=== PATIENT | male | born 1990 | race Caucasian/White ===

== ENCOUNTER 2020-11-29 17:16 | Emergency (ER) | payer OTHER ==
[~2020-11-29 17:16] MED LIST: ASPIRIN 325MG325 MG PO; BACTROBAN OINT22 GM EXT; CLEOCIN HCL300 MG PO; IBU800 MG PO; IBUPROFEN600 MG PO; IBUPROFEN800 MG PO; KEFLEX CAP 500500 MG PO; NORCO 7.5-3251 EACH PO; PERCOCET 7.5-31 EACH PO; PRILOSEC OTC20 MG PO; VITAMIN C500 M4 PO
[2020-11-29] MEDS ORDERED: BACTROBAN OINT22 GM EXT (20:09)
[2020-11-29] MEDS ORDERED: IBUPROFEN600 MG PO (20:09)
[2020-11-29] MEDS ORDERED: BACTRIM DS TAB1 EACH PO (20:09)
== END 2020-11-29 20:20 | disposition home or self-care (01) ==
LOC: ER1 17:16
DX: L02.31 Cutaneous abscess of buttock (principal); K21.9 Gastro-esophageal reflux disease without esophagitis; F17.210 Nicotine dependence, cigarettes, uncomplicated; Z88.1 Allergy status to other antibiotic agents
CPT/HCPCS: 87070; 87205; 99283

== ENCOUNTER → 2021-04-17 | Outpatient (CLI) | payer OTHER ==
[~2021-04-17] MED LIST changes: +BACTRIM DS TAB1 EACH PO
== END ==
LOC: KOH-I 15:26
DX: M25.572 Pain in left ankle and joints of left foot (principal); M19.072 Primary osteoarthritis, left ankle and foot
CPT/HCPCS: 73610

== ENCOUNTER → 2021-04-18 | Outpatient (CLI) | payer OTHER | LOC: KOH-I 13:00 | DX: M19.072 Primary osteoarthritis, left ankle and foot (principal); M87.872 Other osteonecrosis, left ankle; M95.8 Other specified acquired deformities of musculoskeletal system | CPT/HCPCS: 73721 ==

== ENCOUNTER 2021-09-05 15:32 | Emergency (ER) | payer OTHER ==
[2021-09-05 18:19] LABS: HEMOGLOBIN 14.9 gm/dl (14.0-17.5); RED BLOOD COUNT 5.01 M/UL (4.20-5.50); WHITE BLOOD COUNT 10.6 K/UL (4.5-11.0)
[2021-09-05 18:46] LABS: BUN/CREATININE RATIO 18 (0-10)
[2021-09-05] MEDS ORDERED: ELIQUIS 5 MG TAB5 MG PO (19:37)
== END 2021-09-05 20:24 | disposition home or self-care (01) ==
LOC: ER1 15:32
PROVIDERS: Physician Assistant Medical
DX: I82.4Z1 Acute embolism and thrombosis of unspecified deep veins of right distal lower extremity (principal); K21.9 Gastro-esophageal reflux disease without esophagitis; F17.210 Nicotine dependence, cigarettes, uncomplicated; Z88.1 Allergy status to other antibiotic agents
CPT/HCPCS: 80053; 85025; 85379; 85610; 85730; 93971; 99284

== ENCOUNTER 2021-10-08 10:41 | Emergency (ER) | payer OTHER ==
[~2021-10-08 10:41] MED LIST changes: +ELIQUIS 5 MG TAB5 MG PO
[2021-10-08] MEDS ORDERED: CEPHALEXIN500 MG PO (11:36)
== END 2021-10-08 11:45 | disposition home or self-care (01) ==
LOC: ER1 10:41
DX: S61.411A Laceration without foreign body of right hand, initial encounter (principal); K21.9 Gastro-esophageal reflux disease without esophagitis; F17.210 Nicotine dependence, cigarettes, uncomplicated; W45.8XXA Other foreign body or object entering through skin, initial encounter
CPT/HCPCS: 99282